=== PATIENT | male | born 1995 | race Caucasian/White ===

== ENCOUNTER 2016-06-16 11:15 | Emergency (ER) | payer SELFPAY ==
[2016-06-16 11:24] VITALS: BP 140/87; PULSE 101; RESP 18; TEMP 99.9; O2SAT 98
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
[2016-06-16 11:59] LABS: COLOR YELLOW; LEUKOCYTE ESTERASE,URINE NEGATIVE (NEGATIVE); NITRITE,URINE NEGATIVE (NEGATIVE); PH,URINE 6.5 (5.0-7.5)
[2016-06-16 12:11] LABS: BACTERIA TRACE /hpf (NONE SEEN); MUCUS 1+ /lpf (NONE-1+)
[2016-06-16] MEDS ORDERED: cefTRIAXone 250 MG VIAL IM ONE (13:07)
[2016-06-16] MEDS ORDERED: LIDOCAINE 1% 5 ML SDV ONE (13:13)
== END 2016-06-16 13:35 | disposition home or self-care (01) ==
LOC: CED 11:15
DX: N45.1 Epididymitis (principal)
CPT/HCPCS: 76870-PO; 81003-PO; 81015-PO; J0696